=== PATIENT | female | born 1970 | race Caucasian/White ===

== ENCOUNTER 2017-02-22 08:00 | Outpatient (CLI) | payer OTHER | END 2017-02-22 08:01 | disposition home or self-care (01) | DX: Z00.00 Encounter for general adult medical examination without abnormal findings (principal) ==

== ENCOUNTER 2017-03-08 14:24 | Outpatient (CLI) | payer OTHER | END 2017-03-08 14:25 | disposition home or self-care (01) | DX: N63 Unspecified lump in breast (principal) ==

== ENCOUNTER 2018-01-21 08:00 | Outpatient (CLI) | payer OTHER | END 2018-01-21 23:59 | disposition home or self-care (01) | LOC: LAB.R 08:00 | PROVIDERS: ATTEND Nurse Practitioner Obstetrics & Gynecology | DX: R80.9 Proteinuria, unspecified (principal) | CPT/HCPCS: 87086 ==

== ENCOUNTER 2018-03-10 16:19 | Outpatient (CLI) | payer OTHER ==
--- NOTE | 2018-03-11 13:48 | Mammography Report ---
DIGITAL SCREENING MAMMOGRAM: 03/10/2018 CLINICAL INDICATION: A 47-year-old with history of late childbearing, family history of breast cancer, for screening. COMPARISON: 02/2017. TECHNIQUE: Routine CC and MLO projections were obtained of the breasts. FINDINGS: Parenchymal tissue within both breasts is heterogeneously dense, which may lower the sensitivity of mammography; however, there are no dominant masses, suspicious microcalcifications, or secondary signs of malignancy. In comparison to the previous studies, there are no significant changes. IMPRESSION: NO MAMMOGRAPHIC EVIDENCE OF MALIGNANCY. NO SIGNIFICANT INTERVAL CHANGES. RECOMMENDATION: Screening mammography is recommended annually. BIRADS CATEGORY 1 - NEGATIVE. STANDARD QUALIFYING STATEMENTS: 1. This examination was reviewed with the aid of Computed-Aided Detection (CAD). 2. A negative or benign imaging report should not delay biopsy if clinically suspicious findings are present. Consider surgical consultation if warranted. More than 5% of cancers are not identified by imaging. 3. Dense breasts may obscure an underlying neoplasm. TD: 03/11/2018 13:47
== END 2018-03-10 16:20 | disposition home or self-care (01) ==
LOC: DI 16:19
PROVIDERS: ATTEND Nurse Practitioner Obstetrics & Gynecology
DX: Z12.31 Encounter for screening mammogram for malignant neoplasm of breast (principal); Z80.3 Family history of malignant neoplasm of breast
CPT/HCPCS: 77067

== ENCOUNTER 2018-03-18 08:34 | Outpatient (CLI) | payer OTHER ==
--- NOTE | 2018-03-18 17:36 | Ultrasound Report ---
RENAL ARTERY DUPLEX: 03/18/2018 CLINICAL INDICATION: Hypertension. TECHNIQUE: Real-time sonographic vascular imaging was performed by the fishing captain through the renal arteries utilizing both color-flow and Doppler flow analysis. Multiple direct sales representative static images were saved for review. RT KIDNEY RENAL SIZE LT KIDNEY RENAL SIZE Size: 10.0 x 3.7 x 6.2 cm Size: 9.7 x 5.1 x 5.9 cm SEGMENTAL ARTERY SEGMENTAL ARTERY PSV RI PSV RI Upper Pole 56 0.58 Upper Pole 53 0.61 Mid Pole 94 0.58 Mid Pole 80 0.68 Lower Pole 65 0.67 Lower Pole 66 0.68 RIGHT RENAL ARTERY LEFT RENAL ARTERY PSV RENAL ARTERY/ AORTA RATIO (RA/AO) PSV RENAL ARTERY/ AORTA RATIO (RA/AO) Origin: unable to obtain -- Origin: 145 1.3 Proximal: unable to obtain -- Proximal: 90 0.83 Mid: 233 2.1 Mid: 175 1.6 Distal: 205 1.89 Distal: 106 0.98 PROXIMAL AORTA PSV: 108 3 RRV patent: Yes LRV patent: Yes CRITERIA FOR CLASSIFICATION OF RENAL ARTERY DISEASE BY DUPLEX SCANNING Source: Criteria for Classification of Renal Artery Disease by Duplex Scanning [facility] Duplex Scanning In Vascular Disorders, 4th ed. 2010. Print. RENAL ARTERY DIAMETER REDUCTION RENAL ARTERY PSV RAR Normal < 180 cm/sec < 3.5 < 60% >/= 180 cm/sec < 3.5 >/= 60% >/= 180 cm/sec >/= 3.5 Occlusion (100%) No signal No signal FINDINGS RIGHT: The origin and proximal portion of the right renal artery were obscured by bowel gas. The mid to distal segments are well visualized, and demonstrates normal ratios. The right kidney measures 10.0 x 6.2 x 3.7 cm. Intrarenal resistive indices are normal. No hydronephrosis is present. LEFT: The left renal artery was well visualized throughout its length. Velocities and ratios are normal. Intrarenal resistive indices are normal. The left kidney measures 9.7 x 5.9 x 5.1 cm. No hydronephrosis is present. IMPRESSION: NONVISUALIZATION OF THE ORIGIN AND PROXIMAL SEGMENT OF THE RIGHT RENAL ARTERY. OTHERWISE, NORMAL RENAL ARTERY DUPLEX. TD: 03/18/2018 15:00 [facility]
== END 2018-03-18 08:35 | disposition home or self-care (01) ==
LOC: DI 08:34
PROVIDERS: ATTEND Physician Assistant Medical
DX: I10 Essential (primary) hypertension (principal)
CPT/HCPCS: 93975